=== PATIENT | male | born 1930 | race Caucasian/White ===

== ENCOUNTER → 2016-09-08 | Outpatient (CLI) | payer MEDICARE ==
[2016-09-04 15:00] VITALS: BP 111/59
[~2016-09-08] MED LIST: ALLO300T PO; AMLO5TAB2 PO; DONE5TAB7 PO; METO25TA4 PO; OXYC-323 PO
== END | disposition home or self-care (01) ==
LOC: PMGWOUND 08:54
PROVIDERS: ATTEND Emergency Medicine Undersea and Hyperbaric Medicine
DX: T81.31XA Disruption of external operation (surgical) wound, not elsewhere classified, initial encounter (principal); J44.9 Chronic obstructive pulmonary disease, unspecified; I10 Essential (primary) hypertension; I73.9 Peripheral vascular disease, unspecified; E78.5 Hyperlipidemia, unspecified; E03.9 Hypothyroidism, unspecified; Z87.891 Personal history of nicotine dependence; Y83.8 Other surgical procedures as the cause of abnormal reaction of the patient, or of later complication, without mention of misadventure at the time of the procedure
CPT/HCPCS: 97597; 97598; 97606

== ENCOUNTER 2016-09-20 06:30 | Emergency (ER) | payer MEDICARE ==
[~2016-09-20] VITALS: Ht 177.8 cm; Wt 72.1 kg
[2016-09-20 07:15] LABS: BASO % 1 % (0-3); EOS % 1 % (0-3); HEMATOCRIT 40.3 % (39.0-53.0); HEMOGLOBIN 12.8 g/dL (13.0-17.5); LYMPH % 13 % (24-48); MEAN CORPUSCULAR HEMOGLOBIN 28 pg (25-35); MEAN CORPUSCULAR HGB CONC 32 g/dL (31-37); MEAN CORPUSCULAR VOLUME 89 fL (79-100); MONO % 8 % (0-9); NEUT % 77 % (31-73); PLATELET COUNT 409 x10^3/uL (140-400); RED BLOOD COUNT 4.51 x10^6/uL (4.30-5.70); RED CELL DISTRIBUTION WIDTH 15.8 % (11.5-14.5); WHITE BLOOD COUNT 7.4 x10^3/uL (4.0-11.0)
[2016-09-20 07:27] LABS: CALCIUM 9.1 mg/dL (8.5-10.1); CREATININE 1.2 mg/dL (0.7-1.3); GFR 57.4; POTASSIUM 5.3 mmol/L (3.5-5.1)
[2016-09-20 07:33] LABS: ALBUMIN 2.8 g/dL (3.4-5.0); ALBUMIN/GLOBULIN RATIO 0.7 (1.0-1.7); TOTAL BILIRUBIN 0.6 mg/dL (0.2-1.0); TOTAL PROTEIN 6.9 g/dL (6.4-8.2)
[2016-09-20] MEDS ORDERED: IV NORMAL SALINE 1000ML BAG 1,000 ML IV ONE (11:45)
[2016-09-20] MEDS ORDERED: metroNIDAZOLE 500 MG TABLET PO ONE (11:45)
[2016-09-20 12:30] VITALS: BP 137/69
--- NOTE | 2016-09-20 13:20 | PHYS DOC ---
Past Medical History Past Medical History: Dementia, Pneumonia, Other Additional Past Medical Histor: TREMORS Past Surgical History: Appendectomy Additional Past Surgical Histo: FEM POP, FASCIOTOMY Alcohol Use: Occasionally Drug Use: None Adult General Chief Complaint Chief Complaint: GI PROBLEM HPI HPI Patient is a 86 year old male brought to the ED by EMS from [facility]. History is from EMS, and later from the patient's daughter and granddaughter who arrived. The patient is not really contributing much to the history. Patient is at [facility] after a recent bypass surgery to his leg with wound complications and infection. Patient has been getting IV antibiotics and wound care. EMS state they were called for bloody stools. [employer] told me that they saved his stool for him to look at and it appeared to be "explosive diarrhea" in the toilet with a little bit of blood. [employer] told me that he did not think that there was a large amount of blood. [employer] told me that the patient had reportedly had a stool earlier at [facility] that had more blood in it. The patient denies diarrhea and denies bloody stool. However, patient's family says that he has had diarrhea, frequent loose stools, before he was ever hospitalized for his bypass surgery. They don't believe that that is acute. They are not aware of any history of bloody stools however. Patient is reportedly on IV antibiotics for his wound infection. Patient denies any complaints and is not able to contribute to the history, although he is alert and talkative. Review of Systems Review of Systems Unable to obtain review of systems because the patient denies everything. Current Medications Current Medications Current Medications Medications (Trade) Dose Ordered Sig/William Start Time Stop Time Status Last Admin Dose Admin Metronidazole (Flagyl) 500 mg 1X ONCE 09/20/16 11:45 09/20/16 11:46 DC Sodium Chloride 1,000 ml @ 1,000 mls/hr 1X ONCE 09/20/16 11:45 09/20/16 12:44 DC 09/20/16 11:47 1,000 MLS/HR Allergies Allergies Allergies Coded Allergies Type Severity Reaction Last Updated Verified Sulfa (Sulfonamide Antibiotics) Allergy Unknown 09/20/16 Yes Physical Exam Physical Exam Constitutional: Elderly somewhat cachectic patient who is alert, answers questions, with stable vital signs, warm and dry, afebrile HENT: Normocephalic, atraumatic, bilateral external ears normal, nose normal. [ ] Eyes: conjunctiva normal, no discharge. [] Neck: Normal range of motion, no stridor. [] Cardiovascular:Heart rate regular rhythm, no murmur [] Lungs & Thorax: Bilateral breath sounds clear to auscultation [] Abdomen: Bowel sounds normal, soft, no tenderness, no masses, no pulsatile masses. [] Skin: Warm, dry, no erythema, no rash. [] Extremities: Left leg is bandaged, bandage is removed by nursing staff, revealing a partially healed, partially dehisced left leg surgical scar with some warmth and erythema of the edges. Left foot is pink and warm with 2+ DP pulse. Left foot has some mild nonspecific swelling without redness or warmth. Neuro: no focal deficits noted. [] Current Patient Data Vital Signs Vital Signs Date Time Temp Pulse Resp B/P (MAP) Pulse Ox O2 Delivery O2 Flow Rate FiO2 09/20/16 12:30 76 20 137/69 (91) 98 09/20/16 06:35 98.2 Room Air 98.2 Lab Values Laboratory Tests Test 09/20/16 07:00 White Blood Count 7.4 x10^3/uL (4.0-11.0) Red Blood Count 4.51 x10^6/uL (4.30-5.70) Hemoglobin 12.8 g/dL (13.0-17.5) L Hematocrit 40.3 % (39.0-53.0) Mean Corpuscular Volume 89 fL (79-100) Mean Corpuscular Hemoglobin 28 pg (25-35) Mean Corpuscular Hemoglobin Concent 32 g/dL (31-37) Red Cell Distribution Width 15.8 % (11.5-14.5) H Platelet Count 409 x10^3/uL (140-400) H Neutrophils (%) (Auto) 77 % (31-73) H Lymphocytes (%) (Auto) 13 % (24-48) L Monocytes (%) (Auto) 8 % (0-9) Eosinophils (%) (Auto) 1 % (0-3) Basophils (%) (Auto) 1 % (0-3) Neutrophils # (Auto) 5.7 x10^3uL (1.8-7.7) Lymphocytes # (Auto) 1.0 x10^3/uL (1.0-4.8) Monocytes # (Auto) 0.6 x10^3/uL (0.0-1.1) Eosinophils # (Auto) 0.1 x10^3/uL (0.0-0.7) Basophils # (Auto) 0.0 x10^3/uL (0.0-0.2) Sodium Level 142 mmol/L (136-145) Potassium Level 5.3 mmol/L (3.5-5.1) H Chloride Level 112 mmol/L (98-107) H Carbon Dioxide Level 18 mmol/L (21-32) L Anion Gap 12 (6-14) Blood Urea Nitrogen 28 mg/dL (8-26) H Creatinine 1.2 mg/dL (0.7-1.3) Estimated GFR (Cockcroft-Gault) 57.4 BUN/Creatinine Ratio 23 (6-20) H Glucose Level 120 mg/dL (70-99) H Calcium Level 9.1 mg/dL (8.5-10.1) Total Bilirubin 0.6 mg/dL (0.2-1.0) Aspartate Amino Transferase (AST) 26 U/L (15-37) Alanine Aminotransferase (ALT) 29 U/L (16-63) Alkaline Phosphatase 228 U/L (46-116) H Total Protein 6.9 g/dL (6.4-8.2) Albumin 2.8 g/dL (3.4-5.0) L Albumin/Globulin Ratio 0.7 (1.0-1.7) L Lipase 314 U/L (73-393) Laboratory Tests 09/20/16 07:00 Laboratory Tests 09/20/16 07:00 EKG EKG [] Radiology/Procedures Radiology/Procedures [] Course & Med Decision Making Course & Med Decision Making Pertinent Labs and Imaging studies reviewed. (See chart for details) 86-year-old male sent from [facility] with the concern for diarrhea, the patient has been on antibiotics for wound infection, also concern for bloody stools. Patient had been here 2 or 3 hours and was not producing any diarrhea whatsoever. We gave him some juice and crackers and got him up on a commode and he had just a little bit of diarrhea that had no blood in it. That diarrhea was sent for C. difficile which will not be back today. Labs today showing normal white count, consistent with mild dehydration with elevated hemoglobin compared to previous, also mild hyperkalemia at 5.3. Reportedly, they have been having trouble with hypokalemia and have been giving him oral potassium at [facility]. I reviewed his record and it was low here when he was hospitalized. I had a long visit with the patient and his daughter and granddaughter. We talked about C. difficile and the possibility that he might have that. They're skeptical because the patient has had diarrhea for a long time they said, before he was admitted to the hospital. They are reluctant to start treating him with metronidazole until we get a test result back. I believe that is a reasonable choice. When his C. difficile testing is back, if it is positive, he can be started on metronidazole. Also he appears a bit dehydrated and was given a liter of normal saline. His potassium is a bit high, that normal saline bolus should treat that. I wrote for them to cut back on his potassium supplementation. Patient remained stable and was in the emergency department for more than 7 hours and did not have any large amount of diarrheal stool, he only had one small stool when we had him up and encouraged him to do so. He had no bloody stool whatsoever. He was hemodynamically stable with a stable hemoglobin. If he is having some lower GI bleeding I don't believe it is of sufficient acuity that he should be admitted to the hospital at this time. Family is agreeable. He was sent back by EMS to [facility]. [] Dragon Disclaimer Dragon Disclaimer This electronic medical record was generated, in whole or in part, using a voice recognition dictation system. Departure Departure Impression: Primary Impression: Diarrhea Additional Impressions: Dehydration Hyperkalemia Disposition: 03 TRANSFER SNF Condition: IMPROVED Referrals: BRANDON CROCKER Jr, MD (PCP) Additional Instructions: Today, the patient was in the emergency department for over 6 hours and had only one small stool which had no blood in it. That stool was sent for C. difficile testing, which will take a day or 2. I discussed with the family. The patient's daughter and granddaughter state that he had diarrhea before he ever had his bypass. They're not sure that his diarrhea is acute. We discussed whether or not to start treating him for C. difficile and they would prefer to wait until we find out whether he really has it. Therefore, he will not be started on antibiotics today for C. difficile, since the test is pending. If his C. difficile test is positive, he will need to start taking oral metronidazole. Today, blood tests show that he is a little dehydrated and he was given a liter of fluids. Offer frequent oral fluids. Also today, blood test showed that his potassium is a little high. Potassium was 5.3. This was treated in the emergency department with IV fluids. I recommend that his oral potassium supplementation be decreased. Cut his current dose in half and recheck potassium in 2-3 days. Problem Qualifiers PREET KHALIL MD Sep 20, 2016 13:20
== END 2016-09-20 13:56 | disposition home or self-care (01) ==
LOC: ER 06:30
DX: R19.7 Diarrhea, unspecified (principal); E86.0 Dehydration; E87.5 Hyperkalemia; F03.90 Unspecified dementia, unspecified severity, without behavioral disturbance, psychotic disturbance, mood disturbance, and anxiety; Z90.49 Acquired absence of other specified parts of digestive tract; Z98.890 Other specified postprocedural states; Z88.2 Allergy status to sulfonamides
CPT/HCPCS: 36415; 80053; 83690; 85025; 87324; 96360; 99284; J7030

== ENCOUNTER → 2016-09-22 | Outpatient (CLI) | payer MEDICARE ==
[2016-09-20 12:30] VITALS: BP 137/69
== END | disposition home or self-care (01) ==
LOC: PMGWOUND 08:54
PROVIDERS: ATTEND Emergency Medicine Undersea and Hyperbaric Medicine
DX: T81.31XD Disruption of external operation (surgical) wound, not elsewhere classified, subsequent encounter (principal); J44.9 Chronic obstructive pulmonary disease, unspecified; I10 Essential (primary) hypertension; E78.5 Hyperlipidemia, unspecified; E03.9 Hypothyroidism, unspecified; I73.9 Peripheral vascular disease, unspecified; Z87.891 Personal history of nicotine dependence; F03.90 Unspecified dementia, unspecified severity, without behavioral disturbance, psychotic disturbance, mood disturbance, and anxiety; Z87.01 Personal history of pneumonia (recurrent); Z85.118 Personal history of other malignant neoplasm of bronchus and lung; Z90.49 Acquired absence of other specified parts of digestive tract; Y83.8 Other surgical procedures as the cause of abnormal reaction of the patient, or of later complication, without mention of misadventure at the time of the procedure
CPT/HCPCS: 97597; 97598

== ENCOUNTER → 2016-09-29 | Outpatient (CLI) | payer MEDICARE ==
[2016-09-20 12:30] VITALS: BP 137/69
== END | disposition home or self-care (01) ==
LOC: PMGWOUND 09:15
PROVIDERS: ATTEND Emergency Medicine Undersea and Hyperbaric Medicine
DX: T81.31XD Disruption of external operation (surgical) wound, not elsewhere classified, subsequent encounter (principal); J44.9 Chronic obstructive pulmonary disease, unspecified; Z87.891 Personal history of nicotine dependence; E78.5 Hyperlipidemia, unspecified; E03.9 Hypothyroidism, unspecified; I10 Essential (primary) hypertension; I73.9 Peripheral vascular disease, unspecified; Y83.8 Other surgical procedures as the cause of abnormal reaction of the patient, or of later complication, without mention of misadventure at the time of the procedure
CPT/HCPCS: 97597; 97598; 97605